=== PATIENT | female | born 1960 | race American Indian/Alaskan Native ===

== ENCOUNTER 2017-12-10 08:44 | Emergency (ER) | payer MEDICARE ==
[2017-12-10 10:05] VITALS: BP 129/84
--- NOTE | 2017-12-10 12:22 | Emergency Department Report ---
- General Chief complaint: Skin/Abscess/Foreign Body Stated complaint: CHEST PAIN, WOUND ON BACK Time Seen by Provider: 12/10/17 12:08 Source: patient Mode of arrival: Ambulatory Limitations: No Limitations - History of Present Illness Initial comments: Patient here reports she has discrete skin growth or fatty tissue on the right upper back for 2 weeks. She reports this is caused in her right chest to hurt. Denies any injury. She states that she has had similar cyst and mid upper back which was drained but this one is painful and uncomfortable. 10/ 10 worse with palpation. Better with resting. No giil-amr-yzhhsie medication taken. Patient reports that her daughter tried to drain the area and some pus came from site but it got bigger. Denies any fever or chills complaint: abscess/boil Onset/Timin -: week(s) Tetanus Up to Date: yes Location: back (right upper back) Severity scale (0 -10): 9 Quality: dull Consistency: intermittent Improves with: immobilization, rest Worsens with: palpation, movement Context: none Associated symptoms: denies other symptoms Treatments Prior to Arrival: attempted to drain pus at - Related Data Home Medications Medication Instructions Recorded Confirmed Last Taken Esomeprazole Magnesium [Nexium] 40 mg PO QDAY 07/23/13 06/26/17 06/26/17 09:00 Warfarin [Coumadin] 5 mg PO QDAY 07/23/13 06/17/17 06/16/17 Gabapentin [Gabapentin] 300 mg PO DAILY 06/17/17 06/26/17 06/23/17 09:00 Enoxaparin [Lovenox] 40 mg SQ QDAY 06/19/17 06/26/17 06/25/17 16:00 Letrozole (Nf) [Femara (Nf)] 2.5 mg PO QDAY 06/19/17 06/26/17 06/26/17 09:00 lamoTRIgine [LaMICtal] 25 mg PO BID 06/19/17 06/26/17 06/26/17 09:00 Previous Rx's Medication Instructions Recorded Last Taken Type HYDROcodone/APAP 5-325 [Lem[place] 1 each PO Q6HR PRN #30 tablet 06/27/17 Unknown Rx 5-325 mg TAB] Ibuprofen [Motrin] 800 mg PO Q8HR PRN #30 tablet 06/27/17 Unknown Rx Labetalol [Normodyne TAB] 200 mg PO BID #60 tablet 06/27/17 Unknown Rx Acetaminophen/Codeine [Tylenol 1 tab PO Q6H PRN #12 tab 12/10/17 Unknown Rx /Codeine # 3 tab] Sulfamethoxazole/Trimethoprim 1 each PO BID 10 Days #20 tablet 12/10/17 Unknown Rx [Bactrim DS TAB] Allergies Allergy/AdvReac Type Severity Reaction Status Date / Time No Known Allergies Allergy Verified 06/26/17 11:43 Abscess Boil HPI - HPI Chief Complaint: Skin/Abscess/Foreign Body Stated Complaint: CHEST PAIN, WOUND ON BACK Time Seen by Provider: 12/10/17 12:08 Home Medications: Home Medications Medication Instructions Recorded Confirmed Last Taken Esomeprazole Magnesium [Nexium] 40 mg PO QDAY 07/23/13 06/26/17 06/26/17 09:00 Warfarin [Coumadin] 5 mg PO QDAY 07/23/13 06/17/17 06/16/17 Gabapentin [Gabapentin] 300 mg PO DAILY 06/17/17 06/26/17 06/23/17 09:00 Enoxaparin [Lovenox] 40 mg SQ QDAY 06/19/17 06/26/17 06/25/17 16:00 Letrozole (Nf) [Femara (Nf)] 2.5 mg PO QDAY 06/19/17 06/26/17 06/26/17 09:00 lamoTRIgine [LaMICtal] 25 mg PO BID 06/19/17 06/26/17 06/26/17 09:00 Previous Rx's Medication Instructions Recorded Last Taken Type HYDROcodone/APAP 5-325 [[place] 1 each PO Q6HR PRN #30 tablet 06/27/17 Unknown Rx 5-325 mg TAB] Ibuprofen [Motrin] 800 mg PO Q8HR PRN #30 tablet 06/27/17 Unknown Rx Labetalol [Normodyne TAB] 200 mg PO BID #60 tablet 06/27/17 Unknown Rx Acetaminophen/Codeine [Tylenol 1 tab PO Q6H PRN #12 tab 12/10/17 Unknown Rx /Codeine # 3 tab] Sulfamethoxazole/Trimethoprim 1 each PO BID 10 Days #20 tablet 12/10/17 Unknown Rx [Bactrim DS TAB] Allergies/Adverse Reactions: Allergies Allergy/AdvReac Type Severity Reaction Status Date / Time No Known Allergies Allergy Verified 06/26/17 11:43 ED Review of Systems ROS: Stated complaint: CHEST PAIN, WOUND ON BACK Other details as noted in HPI Comment: All other systems reviewed and negative Constitutional: no symptoms reported ENT: denies: throat pain, congestion Respiratory: no symptoms reported Cardiovascular: denies: chest pain, palpitations, dyspnea on exertion, orthopnea , edema, syncope, paroxysmal nocturnal dyspnea Gastrointestinal: denies: abdominal pain, nausea, vomiting, diarrhea, constipation, hematemesis, melena, hematochezia Musculoskeletal: denies: back pain, joint swelling, arthralgia, myalgia Skin: other (abscess to right upper back) Neurological: denies: headache, abnormal gait, vertigo ED Past Medical Hx - Past Medical History Previous Medical History?: Yes Hx Congestive Heart Failure: No Hx Diabetes: No Hx Deep Vein Thrombosis: Yes Hx Pulmonary Embolism: Yes Hx GERD: Yes Hx of Cancer: Yes (Right breast) Hx Seizures: Yes Hx Asthma: No Hx HIV: No - Surgical History Past Surgical History?: No Hx Breast Surgery: Yes (lumpectomy with lymph nodes removed) - Family History Family history: hypertension - Social History Smoking Status: Former Smoker Substance Use Type: Prescribed - Medications Home Medications: Home Medications Medication Instructions Recorded Confirmed Last Taken Type Esomeprazole Magnesium [Nexium] 40 mg PO QDAY 07/23/13 06/26/17 06/26/17 09:00 History Warfarin [Coumadin] 5 mg PO QDAY 07/23/13 06/17/17 06/16/17 History Gabapentin [Gabapentin] 300 mg PO DAILY 06/17/17 06/26/17 06/23/17 09:00 History Enoxaparin [Lovenox] 40 mg SQ QDAY 06/19/17 06/26/17 06/25/17 16:00 History Letrozole (Nf) [Femara (Nf)] 2.5 mg PO QDAY 06/19/17 06/26/17 06/26/17 09:00 History lamoTRIgine [LaMICtal] 25 mg PO BID 06/19/17 06/26/17 06/26/17 09:00 History HYDROcodone/APAP 5-325 [[place] 1 each PO Q6HR PRN #30 tablet 06/27/17 Unknown Rx 5-325 mg TAB] Ibuprofen [Motrin] 800 mg PO Q8HR PRN #30 tablet 06/27/17 Unknown Rx Labetalol [Normodyne TAB] 200 mg PO BID #60 tablet 06/27/17 Unknown Rx Acetaminophen/Codeine [Tylenol 1 tab PO Q6H PRN #12 tab 12/10/17 Unknown Rx /Codeine # 3 tab] Sulfamethoxazole/Trimethoprim 1 each PO BID 10 Days #20 tablet 12/10/17 Unknown Rx [Bactrim DS TAB] ED Physical Exam - General Limitations: No Limitations General appearance: alert, in no apparent distress - Head Head exam: Present: atraumatic, normocephalic, normal inspection - Eye Eye exam: Present: normal appearance, PERRL, EOMI Pupils: Present: normal accommodation - ENT ENT exam: Present: normal exam, normal orophraynx, mucous membranes moist - Neck Neck exam: Present: normal inspection, full ROM, other (no C-spine tenderness). Absent: tenderness, meningismus, lymphadenopathy, thyromegaly - Respiratory Respiratory exam: Present: normal lung sounds bilaterally. Absent: respiratory distress, chest wall tenderness, accessory muscle use - Cardiovascular Cardiovascular Exam: Present: regular rate, normal rhythm, normal heart sounds. Absent: systolic murmur, diastolic murmur - GI/Abdominal GI/Abdominal exam: Present: soft, normal bowel sounds. Absent: distended, tenderness, guarding, rebound, rigid, organomegaly, mass, bruit, pulsatile mass , hernia - Extremities Exam Extremities exam: Present: normal inspection, full ROM, normal capillary refill , other (no clubbing, cyanosis or edema. +2 pulses to all extremities and no neurovascular compromise). Absent: tenderness, pedal edema, joint swelling, calf tenderness - Back Exam Back exam: Present: normal inspection, full ROM, rash noted (abscess to right upper back), other (ambulates without any difficulties). Absent: tenderness, CVA tenderness (R), CVA tenderness (L), muscle spasm, paraspinal tenderness, vertebral tenderness - Neurological Exam Neurological exam: Present: alert, oriented X3, normal gait, reflexes normal. Absent: motor sensory deficit - Psychiatric Psychiatric exam: Present: normal affect, normal mood - Skin Skin exam: Present: warm, dry, intact, normal color, erythema, other (abscess to right upper back) - Expanded Skin Exam Expanded Type of lesion: Present: abscess (right upper back) Distribution of rash: back (right upper back) Description of rash: Present: size (1 cm x 1 cm), tenderness, erythematous, swelling. Absent: crusting, discharge, fluctuant, indurated 1 - Patient with 1 x 1 cm indurated fluxion area to right upper back. Tender to palpate. No drainage noted. ED Course Vital Signs 12/10/17 10:01 Temperature 97.8 F Pulse Rate 80 Respiratory 20 Rate Blood Pressure 129/84 O2 Sat by Pulse 100 Oximetry - Reevaluation(s) Reevaluation #1: 12/10/17 13:25 Incision and drainage procedure to abscess right upper back please refer to procedure note for detail - I & D Right Upper Back Type of Procedure: Complex Site: right upper back Blade Size: 11 I & D Procedure: betadine prep, sterile drapes applied, sterile dressing applied , gauze wick placed Progress: Incision and drainage to abscess: Patient with 1.1 cm abscess to right upper back with positive induration and fluctuance. Under sterile procedure, area cleansed with iodine, followed by normal saline. 5 mL of 0.5% Marcaine injected to side and small incision made to center of abscess. Noted thick pus from side. He expressed a small amount of pus from side. Patient tolerated procedure well. Area cleansed and iodoform pack in place the site followed by dry sterile gauze dressing. Patient tolerated procedure well and to return in 4 days to remove packing. ED Medical Decision Making - Medical Decision Making ED course: Patient here complaining assist her right upper back that is getting bigger. Family attempted to drain the area at home but area became worse. She reports redness, swelling and pain at the site. Evaluation for 1 x 1 cm abscess to right upper back. Incision and drainage procedure done. Please see procedure note for details. Patient instructed to return in 4 days to remove packing and to apply warm compresses to affected site 3-4 times a day. Patient discharged home in stable condition with prescription for Bactrim DS. She does have a primary care physician .I discussed with her that she needs to follow up with her primary care physician. Critical care attestation.: If time is entered above; I have spent that time in minutes in the direct care of this critically ill patient, excluding procedure time. ED Disposition Clinical Impression: Abscess or cellulitis of back, Encounter for incision and drainage procedure Disposition: TO HOME OR SELFCARE Is pt being admited?: No Does the pt Need Aspirin: No Condition: Stable Instructions: Acute Wound Care (ED), Abscess Incision and Drainage (ED), Cellulitis (ED) Additional Instructions: Take antibiotic as prescribed Follow-up with your primary care physician in 2 days Keep affected area clean and dry. Followed discharge instruction on acute wound care . Please return to emergency room if you develop increasing redness, streaking, fever otherwise return to the emergency room in 4 days to have packing removed. warm compresses to affected area 3-4 times a day. These do not apply warm compresses directly to skin and tried to leave packing in. Prescriptions: Acetaminophen/Codeine [Tylenol /Codeine # 3 tab] 1 tab PO Q6H PRN #12 tab PRN Reason: Pain Sulfamethoxazole/Trimethoprim [Bactrim DS TAB] 1 each PO BID 10 Days #20 tablet Referrals: PRIMARY CARE, [Primary Care Provider] - 12/12/17 please return to ,emergency room [Other] - 12/14/17 Forms: Work/School Release Form(ED)
[2017-12-10] MEDS ORDERED: MARCAINE 0.5% INFILTRATI ONE (12:23)
--- NOTE | 2017-12-10 12:38 | Emergency Department Report ---
Blank Doc - Documentation Documentation: Patient is a 57-year-old [place] female who is presenting with a possible abscess on her right upper back. Patient does have area of induration and fluctuance just adjacent to the right scapula patient moved to the treatment room for I&D.
== END 2017-12-10 13:49 | disposition home or self-care (01) ==
LOC: ED 08:44
DX: L02.212 Cutaneous abscess of back [any part, except buttock and flank] (principal); L03.312 Cellulitis of back [any part except buttock and flank]